=== PATIENT | female | born 1970 | race Caucasian/White ===

== ENCOUNTER 2016-09-27 20:57 | Inpatient (IN) | payer OTHER ==
[~2016-09-27] VITALS: Ht 162.6 cm; Wt 59.0 kg
--- NOTE | 2016-09-28 00:15 | NUR ---
Pre-Admission Note Explained unit protocols regarding medications and vital signs Q4H. Pt verbalizes understanding. [facility]. BP:112/72 HR:84, RR:19, SpO2:98% T:97.9, Ht: 5'4", Wt: 130 lbs. Will continue with admission upon pt arrival on the unit.
[2016-09-28 00:27] LABS: *AMPHETAMINE, URINE POSITIVE (NEGATIVE); *BARBITURATE, URINE NEGATIVE (NEGATIVE); *CANNABINOID, URINE POSITIVE (NEGATIVE); *COCCAINE, URINE NEGATIVE (NEGATIVE); *OPIATE, URINE NEGATIVE (NEGATIVE); *PHENCYCLIDINE SCREEN,URINE NEGATIVE (NEGATIVE)
--- NOTE | 2016-09-28 00:30 | NUR ---
Admission Note Pt is a 45 year old female admitted to [facility] on 09/28/2016 for ETOH dependence, arrived on the unit at 0035. NKA, denies seizure history. Pt was able to provide urine drug screen. Upon admission CIWA 8, BP 112/72, pulse 84, respirations 19, Spo2 98%, temp 97.7, no reports of pain 0/10, weight 130, height 5'4". Pt reports she does not have a primary care provider. Pt reports he is not a smoker. Pt denies being hospitalized within the past 30 days. Substance abuse History is as follows: 1. Vodka 750ml/daily, last intake on 09/27/2016 of 750ml, at this rate since 09/12/2016 (). Pt has been drinking for 3 years. Pt urine drug screen resulted positive for amphetamine and cannabis. Pt stated, "My mixed my drink with meth". Pt reports, "I don't remember using marijuana". Pt reports longest sobriety period was for 10 months in 2016. Pt trigger to drink is d/t her son 3 years ago in a bike accident. This is pts first time in treatment, Pt reports she has detoxed by herself previously at home, but is now ready to detox at [facility]. PMH: Depression. Pt did not bring medications from home,s he reports he does not take medications. Upon assessment, pt presents with restlessness, anxiety, agitation, pt is emotional, is crying, reports chills throughout her body, denies SOB/chest pain, face flushed, skin intact - clammy/sweaty. Pt denies SI/HI. Educational information provided and left at beside, pt oriented to room and encouraged to notify staff with any concerns. Safety measures in place, call light within reach, side rails up x2, bed locked and in low position. Will continue to monitor.
[2016-09-28 00:35] VITALS: BP 112/72
[2016-09-28] MEDS ORDERED: MIRALAX 17 GM POWD.PACK PO PRN (01:15)
[2016-09-28] MEDS ORDERED: MAGNESIUM HYDROXIDE 30 ML LIQUID UDC PO PRN (01:15)
[2016-09-28] MEDS ORDERED: LOPERAMIDE HCL 2 MG CAPSULE PO PRN ×2 (01:15)
[2016-09-28] MEDS ORDERED: LORAZEPAM 1 MG TABLET PO PRN (01:15)
[2016-09-28] MEDS ORDERED: diphenhydrAMINE 50 MG CAPSULE PO PRN (01:15)
[2016-09-28] MEDS ORDERED: THIAMINE HCL 200 MG/2 ML VIAL IM ONE (01:15)
[2016-09-28] MEDS ORDERED: ACETAMINOPHEN 325 MG TABLET PO PRN (01:15)
[2016-09-28] MEDS ORDERED: DICYCLOMINE HCL 20 MG TABLET PO PRN (01:15)
[2016-09-28] MEDS ORDERED: MAG HYDROX/AL HYDROX/SIMETH 30 ML LIQUID UDC PO PRN (01:15)
[2016-09-28] MEDS ORDERED: LORAZEPAM 2 MG/1 ML VIAL IM PRN (01:15)
[2016-09-28] MEDS: ONDANSETRON ODT 4 MG TAB.RAPDIS SL PRN ×2 (01:23→20:19)
[2016-09-28] MEDS: IBUPROFEN 400 MG TABLET PO PRN ×3 (01:23→20:19)
[2016-09-28] MEDS ORDERED: diphenhydrAMINE 50 MG CAPSULE ONE (01:25)
[2016-09-28] MEDS ORDERED: IBUPROFEN 400 MG TABLET ONE (01:25)
[2016-09-28] MEDS ORDERED: ONDANSETRON ODT 4 MG TAB.RAPDIS ONE (01:26)
[2016-09-28] MEDS: LORAZEPAM 1 MG TABLET PO PRN ×2 (01:30→09:06)
--- NOTE | 2016-09-28 01:30 | NUR ---
PRN Administration CIWA 13, pt presents with anxiety, agitation, reports chills, unable to sit still, emotional , tremors visible, skin noted sweat, nausea/vomiting. Ativan 1mg PRN, Motrin 400mg PRN, Zofran ODT 4mg PRN and Benadryl 50mg PRN administered. Safety measures in place, will continue to monitor.
[2016-09-28] MEDS ORDERED: LORAZEPAM 1 MG TABLET ONE (01:36)
[2016-09-28 01:41] LABS: BASOPHILS # (AUTO) 0.1 K/uL (0.0-8.0); BASOPHILS % (AUTO) 0.7 % (0.0-2.0); EOSINOPHILS # (AUTO) 0.1 K/uL (0.0-0.7); EOSINOPHILS % (AUTO) 1.8 % (0.0-7.0); HEMATOCRIT 38.8 % (37-47); HEMOGLOBIN 13.3 G/DL (12.0-16.0); LYMPHOCYTES # (AUTO) 2.7 K/UL (0.8-4.8); LYMPHOCYTES % (AUTO) 33.9 % (20.5-51.5); MEAN CORPUSCULAR HEMOGLOBIN 29.2 UUG (27.0-31.0); MEAN CORPUSCULAR HGB CONC 34 g/dL (32.0-37.0); MEAN CORPUSCULAR VOLUME 85.4 FL (81.0-99.0); MONOCYTES # (AUTO) 0.6 K/UL (0.1-1.30); MONOCYTES % (AUTO) 7.9 % (0.0-11.0); NEUTROPHILS # (AUTO) 4.6 K/UL (1.8-8.9); NEUTROPHILS % (AUTO) 55.7 % (38.5-71.5); PLATELET COUNT (AUTO) 240 K/UL (150-450); RED BLOOD CELL COUNT(AUTO) 4.54 MIL/UL (4.2-5.4); WHITE BLOOD COUNT (AUTO) 8.1 K/UL (4.0-11.2)
[2016-09-28 01:49] LABS: BILIRUBIN,TOTAL 0.3 mg/dL (0.2-1.0); POTASSIUM 3.6 mmol/L (3.5-5.1); TOTAL PROTEIN, SERUM 6.8 g/dL (6.4-8.2)
[2016-09-28 02:00] LABS: THYROID STIMULATING HORMONE 1.432 mIU/mL (0.358-3.740)
--- NOTE | 2016-09-28 02:30 | NUR ---
PRN Reassessment Upon reassessment, pt is in bed, sleeping, no verbal cues of distress, respirations unlabored/even. Safety measures in place. Will continue to monitor.
[2016-09-28 04:00] VITALS: BP 110/78
--- NOTE | 2016-09-28 04:00 | NUR ---
Vital Signs BP 110/78, pulse 82, respirations 16, SpO2 99%, temp 97.9, and no pain 0/10. CIWA deferred d/t pt sleeping, to assess while pt is awake as ordered. Safety measures in place, will continue to monitor.
--- NOTE | 2016-09-28 07:00 | NUR ---
End of Shift Pt is a 45 year old female admitted for ETOH dependence. Pt reported drinking vodka 750ml/daily since 09/12/2016, last intake of 750ml on 09/27/2016. PMH: Depression, NKA, fall/seizure precautions, regular diet and full code. During shift, CIWA 13, pt presents with anxiety, agitation, reports chills, unable to sit still, emotional , tremors visible, skin noted sweat, nausea/vomiting. Ativan 1mg PRN, Motrin 400mg PRN, Zofran ODT 4mg PRN and Benadryl 50mg PRN administered - upon reassessment, pt was sleeping. Pt slept for 4 hours, intake of 500 ml PO and voids x1. Safety measures in place, call light within reach, side rails up x2, bed locked and in low position. Endorsed to day shift nurse.
--- NOTE | 2016-09-28 07:30 | NUR ---
Start of shift note; Received report from night nurse. Patient is a 45 year old female admitted on 09/27/16 for ETOH dependence. Patient reported that she recently relapsed on 09/12/16. Patient reported history of depression. Patient is on fall and seizure precaution. Bed in lowest position, call light within reach. Will continue to monitor patient.
[2016-09-28 08:00] VITALS: BP 101/71
[2016-09-28] MEDS ORDERED: TUBERCULIN,PURIF.PROT.DERIV. 5 TU/0.1 ML TEST ID ONE (09:00)
[2016-09-28] MEDS: FOLIC ACID 1 MG TABLET PO SCH (09:05)
[2016-09-28] MEDS: MULTIVITAMINS,THERAPEUTIC TABLET PO SCH (09:06)
[2016-09-28] MEDS: THIAMINE HCL 100 MG TABLET PO SCH (09:06)
--- NOTE | 2016-09-28 09:08 | NUR ---
PRN medications; Patient is complaining of generalized pain rated 6/10, patient's current is 8. PRN medications given, Motrin 400mg PO, Ativan 1mg PO PRN for CIWA score of 8. Will continue to monitor patient for effectiveness of medication.
--- NOTE | 2016-09-28 10:06 | NUR ---
Re-assessment; Patient's CIWA score decreased to 5 from score of 8. Patient stated pain rate of 3 /10 at this time. PRN medications effective.
[2016-09-28 12:00] VITALS: BP 114/77
[2016-09-28] MEDS: LORAZEPAM 1 MG TABLET PO SCH ×3 (12:12→20:19)
[2016-09-28] MEDS: GABAPENTIN 300 MG CAPSULE PO SCH ×2 (15:00→20:19)
[2016-09-28 16:00] VITALS: BP 110/70
--- NOTE | 2016-09-28 18:43 | NUR ---
End of shift note; Patient is AOX4. Patient is a 45 year old female admitted on 09/27/16 for ETOH dependence. Patient reported that she recently relapsed on 09/12/16. Patient reported history of depression. Patient is on fall and seizure precaution. Bed in lowest position, call light within reach. Patient remained compliant with treatment plan. Medications are effective in reducing withdrawal symptoms. Met all needs.
--- NOTE | 2016-09-28 19:45 | NUR ---
START OF SHIFT Received report from day shift nurse. Pt is lying in bed resting. She is a 45 yo female admitted to [facility] on 09/28 for ETOH dependence. She is A&O x3 and ambulatory. NKA, full code, regular diet. She has a PMH of depression. On admission she reported drinking vodka 750mL per day since 09/12/16. Pt is ordered a 5 day subutex taper. She reports anxiety, sweating, and headache. She is observed to have moderate hand tremors. Taper due tonight. Fall and seizure precautions in place. Bed is down with call light in reach. Addendum: 09/29/16 at 0655 by COLBY MIGUEL RN Correction: Pt is ordered a 5 Day Ativan Taper
[2016-09-28 20:00] VITALS: BP 118/75
[2016-09-28] MEDS: TRAZODONE 50 MG TABLET PO PRN (20:22)
--- NOTE | 2016-09-28 20:23 | NUR ---
PRN Motrin, Zofran, and Trazodone Pt reports nausea without vomiting, headache, and inability to sleep. PRN Motrin, Zofran, and Trazodone administered.
--- NOTE | 2016-09-28 21:23 | NUR ---
PRN Motrin, Zofran, and Trazodone reassessment PRN Motrin, Zofran, and Trazodone effective. Pt is lying comfortably in bed with eyes closed. Respirations even and unlabored. Bed is down with call light in reach.
--- NOTE | 2016-09-28 21:55 | NUR ---
STACI Moran reassessment STACI Moran effective. Pt reports relief of low back pain. Addendum: 09/30/16 at 0337 by COLBY MIGUEL RN Disregard note: Incorrect documentation date.
[2016-09-28 22:41] LABS: *BILIRUBIN,URIN NEGATIVE (NEGATIVE); *BLOOD, URINE Trace-intact (NEGATIVE); *CLARITY,URINE SLIGHTLY CLOUDY (CLEAR); *COLOR,URINE YELLOW (YELLOW); *KETONES,URINE NEGATIVE (NEGATIVE); *PROTEIN,URINE NEGATIVE (NEGATIVE); *UROBILINOGEN,URINE 0.2 E.U./dl (NORMAL); NITRITE, URINE NEGATIVE (NEGATIVE); UGLUCOSE NEGATIVE (NEGATIVE)
[2016-09-28 22:49] LABS: LEUKOCYTE ESTERASE ,URINE TRACE (NEGATIVE)
[2016-09-28 22:54] LABS: BACTERIA,URINE MANY /HPF (NONE SEEN); SQUAMOUS EPITHELIAL CELL,UR FEW /HPF (NONE SEEN)
[2016-09-28] MEDS ORDERED: SULFAMETH/TRIMETH 800/160 MG TABLET ONE (23:37)
[2016-09-28] MEDS: SULFAMETH/TRIMETH 800/160 MG TABLET PO SCH (23:39)
--- NOTE | 2016-09-28 23:40 | NUR ---
Nursing Note Pt c/o "bladder pain", frequency, and burning upon urination. Contacted MD with orders received for urinalysis. MD notified of results with orders for Bactrim received and carried out.
[2016-09-29] VITALS: BP 125/80
[2016-09-29 04:00] VITALS: BP 118/81
--- NOTE | 2016-09-29 07:17 | NUR ---
END OF SHIFT Report provided to day shift nurse. Pt is lying in bed resting. She is a 45 yo female admitted to [facility] on 09/28 for ETOH dependence. She is A&O x4 and ambulatory. NKA, full code, regular diet. She has a PMH of depression. On admission she reported drinking vodka 750mL per day since 09/12/16. Pt is ordered a 5 day Ativan taper. PRN Motrin, Zofran, Trazodone administered. Urinalysis positive for infection. MD aware with orders received for Bactrim. Last CIWA was 4. She drank 1396 mL and slept 10 hours. Fall and seizure precautions in place. Bed is down with call light in reach.
--- NOTE | 2016-09-29 07:30 | NUR ---
START OF SHIFT NOTE: Received report from watch mechanic nurse. Pt is a 45 yo female admitted on 09/28/16 for ETOH dependence. Pt is on a 5 day Ativan taper. Tolerating well. Pt is alert and oriented X4. Color good, skin warm and dry. Respirations even and unlabored. Resting in bed at this time. Safety precautions observed. Call light within reach. Will continue to monitor.
[2016-09-29 08:04] VITALS: BP 130/87
[2016-09-29] MEDS: LORAZEPAM 1 MG TABLET PO SCH ×3 (08:43→20:51)
[2016-09-29] MEDS: SULFAMETH/TRIMETH 800/160 MG TABLET PO SCH ×2 (08:44→20:51)
[2016-09-29] MEDS: THIAMINE HCL 100 MG TABLET PO SCH (08:44)
[2016-09-29] MEDS: IBUPROFEN 400 MG TABLET PO PRN ×2 (08:44→20:52)
[2016-09-29] MEDS: GABAPENTIN 300 MG CAPSULE PO SCH ×3 (08:44→20:51)
[2016-09-29] MEDS: FOLIC ACID 1 MG TABLET PO SCH (08:44)
--- NOTE | 2016-09-29 08:45 | NUR ---
VSS CIWA 11 Pt c/o tremors, anxiety and sweating with chills. Also c/o bladder pain associated with her UTI. Motrin 400mg po prn given
[2016-09-29] MEDS: MULTIVITAMINS,THERAPEUTIC TABLET PO SCH (08:46)
--- NOTE | 2016-09-29 09:45 | NUR ---
Pt states Motrin prn helped her bladder pain
[2016-09-29] MEDS: HYDROXYZINE PAMOATE 25 MG CAPSULE PO PRN (12:14)
--- NOTE | 2016-09-29 12:20 | NUR ---
Pt c/o "bad anxiety" Vistaril 50mg po prn given
[2016-09-29 12:55] VITALS: BP 127/83
--- NOTE | 2016-09-29 13:20 | NUR ---
Pt states Vistaril prn "really didn't help."
[2016-09-29] MEDS ORDERED: PHENAZOPYRIDINE HCL 100 MG TABLET PO SCH (14:00)
[2016-09-29 14:09] LABS: HEPATITIS B SURFACE AG Negative (Negative)
[2016-09-29] MEDS: PHENAZOPYRIDINE HCL 100 MG TABLET PO SCH ×2 (14:09→20:52)
--- NOTE | 2016-09-29 14:30 | NUR ---
VSS CIWA 10 c/o anxiety, tremors, chills and sweating.
--- NOTE | 2016-09-29 16:48 | NUR ---
Therapist informed client of group times. Client did not want to attend because she is not feeling well.
[2016-09-29 17:06] VITALS: BP 125/84
--- NOTE | 2016-09-29 18:50 | NUR ---
END OF SHIFT NOTE: Report given to automatic pinsetter mechanic nurse. Pt is a 45 yo female admitted on 09/28/16 for ETOH dependence. Pt is on a 5 day Ativan taper. Tolerating well. Pt is alert and oriented X4. Color good, skin warm and dry. Respirations even and unlabored. Vital signs have remained stable throughout shift. Pt received Motrin 400mg po prn @ 0845 and Vistaril 50mg po prn @1215. Last CIWA 10 @ 1500. Resting in bed at this time. Safety precautions observed. Call light within reach.
--- NOTE | 2016-09-29 19:55 | NUR ---
START OF SHIFT Received report from day shift nurse. Pt is lying in bed resting. She is a 45 yo female admitted to [facility] on 09/28 for ETOH dependence. She is A&O x3 and ambulatory. NKA, full code, regular diet. She has a PMH of depression. On admission she reported drinking vodka 750mL per day since 09/12/16. Pt is ordered a 5 day Ativan taper. She presents with anxiety, moist skin, and back pain. She is being treated with abx and pyridium for UTI. She verbalizes that the symptoms are improving. Pt expresses the desire to make changes to her life for the better after treatment. Provided support. Fall and seizure precautions in place. Bed is down with call light in reach.
[2016-09-29 20:00] VITALS: BP 129/80
[2016-09-29] MEDS: TRAZODONE 50 MG TABLET PO PRN (20:52)
--- NOTE | 2016-09-29 20:55 | NUR ---
PRN Motrin Pt reports low back pain /. PRN Motrin administered.
--- NOTE | 2016-09-29 21:55 | NUR ---
PRN Motrin reassessment PRN Motrin effective. Pt reports relief of low back pain.
[2016-09-30] VITALS (7 sets, daily range): BP systolic 95–130; BP diastolic 64–80
[2016-09-30] MEDS: HYDROXYZINE PAMOATE 25 MG CAPSULE PO PRN ×2 (03:27→09:57)
[2016-09-30] MEDS: CLONIDINE HCL 0.1 MG TABLET PO PRN ×2 (03:27→09:57)
--- NOTE | 2016-09-30 03:30 | NUR ---
PRN Clonidine and Vistaril Pt woke up and reported anxiety, restlessness, and inability to sleep. She states that she has been waking up off and on throughout the night. Skin is moist and she has hand tremors. B/P 130/80 and CIWA 7. PRN Clonidine and Vistaril administered.
--- NOTE | 2016-09-30 04:30 | NUR ---
PRN Clonidine and Vistaril reassessment PRN Clonidine and Vistaril effective. Pt is lying in bed resting with eyes closed. Respirations even and unlabored. Safety measures in place.
--- NOTE | 2016-09-30 07:28 | NUR ---
END OF SHIFT Report provided to day shift nurse. Pt is lying in bed resting. She is a 45 yo female admitted to [facility] on 09/28 for ETOH dependence. She is A&O x3 and ambulatory. NKA, full code, regular diet. She has a PMH of depression. On admission she reported drinking vodka 750mL per day since 09/12/16. Pt started a 5 day Ativan taper on 09/28. Pt has a UTI and is being treated with abx and pyridium. Per pt symptoms are improving. PRN Motrin, Clonidine, and Vistaril administered. Last CIWA 7 before Clonidine and Vistaril administration and pt fell back to sleep after. She drank 1280mL and slept for 8 hours. Fall and seizure precautions in place. Bed is down with call light in reach.
--- NOTE | 2016-09-30 08:00 | NUR ---
START OF SHIFT Pt 45 y/o female admitted for etoh dependence. Pt received in room with eyes closed resting, but easily arousable to name. Pt alert and oriented to name, place, and time. Perrla. Skin warm and slightly moist to touch. Respirations even and unlabored. Bilateral hand tremors noted slightly. It was reported that pt slept for 8 hours last night. Bed on lowest position with side rails x2 up for safety. Call light within reach. No distress noted at this time.
[2016-09-30] MEDS: SULFAMETH/TRIMETH 800/160 MG TABLET PO SCH ×2 (08:32→20:59)
[2016-09-30] MEDS: PHENAZOPYRIDINE HCL 100 MG TABLET PO SCH ×3 (08:32→20:59)
[2016-09-30] MEDS: MULTIVITAMINS,THERAPEUTIC TABLET PO SCH (08:32)
[2016-09-30] MEDS: FOLIC ACID 1 MG TABLET PO SCH (08:32)
[2016-09-30] MEDS: LORAZEPAM 1 MG TABLET PO SCH ×4 (08:32→20:59)
[2016-09-30] MEDS: GABAPENTIN 300 MG CAPSULE PO SCH ×3 (08:33→20:59)
[2016-09-30] MEDS: THIAMINE HCL 100 MG TABLET PO SCH (08:33)
--- NOTE | 2016-09-30 09:57 | NUR ---
PRN Pt state she feels anxious. Vistaril po prn per MD order given and tolerated well.
--- NOTE | 2016-09-30 09:57 | NUR ---
PRN Pt states still feels anxious. Pressured speech noted. Catapres po prn per MD order given and tolerated well.
--- NOTE | 2016-09-30 10:57 | NUR ---
STACI ULLOA Pt observed in room on bed watching television. No distress noted at this time.
--- NOTE | 2016-09-30 18:21 | NUR ---
END OF SHIFT Pt 45 y/o female admitted for ETOH dependence. Pt alert and oriented to name, place, and time. Perrla. Skin warm and slightly moist to touch. Respirations even and unlabored. Bilateral hand tremors noted slightly. Pt with sad affect. Pt remained to isolative to room throughout the day. Pt denies any SI. Pt did not attend group activity today. pt medication compliant and tolerated well. No ASe noted. Bed on lowest position with side rails x2 up for safety. Call light within reach. No distress noted at this time.
--- NOTE | 2016-09-30 20:00 | NUR ---
START OF SHIFT NOTE PATIENT IN ROM. PATIENT ANXIOUS, EMOTIONAL. UPON GREETING, PATIENT VERBALIZED WANTING TO MAKE A PHONE CALL. DENIES ANY PAIN. NO N/V/D. DENIES SI/HI. PATIENT ADVOCATE NOTIFIED. RECEIVED REPORT FROM DAY SHIFT NURSE. PATIENT IS A 45 YEAR OLD FEMALE, ADMITTED FOR ETOH DEPENDENCE. PATIENT DRINKS 750 ML DAILY OF VODKA SINCE 09/12/16. PATIENT RELAPSED SINCE 09/12/16. PATIENT IS ON 4TH DAY OF HER 5 DAY ATIVAN TAPER. PATIENT IS FULL CODE, REGULAR DIET AND NO KNOWN ALLERGY. PATIENT REPORTS PMH OF DEPRESSION. NO SEIZURE HISTORY. SKIN INTACT.PATIENT IS ON BACTRIM AND PYRIDIUM FOR UTI. PATIENT IN HER ROOM MOST OF THE DAY. VS STABLE. PATIENT WAS GIVEN PRN VISTARIL AND CATAPRES DURING THE DAY. LAST CIWA 4. SAFETY MEASURES IN PLACE. CALL LIGHT IN REACH. WILL CONTINUE TO MONITOR.
[2016-09-30] MEDS: TRAZODONE 50 MG TABLET PO PRN (21:09)
--- NOTE | 2016-09-30 21:09 | NUR ---
PRN DESYREL ADMINISTRATION PATIENT REQUESTS FOR SLEEP AID. PRN DESYREL GIVEN. WILL MONITOR FOR EFFECTIVENESS
[2016-10-01] VITALS: BP 110/75
--- NOTE | 2016-10-01 01:00 | NUR ---
PRN TRAZADONE RE-ASSESSMENT PATIENT IN BED WITH EYES CLOSED. RESPIRATION EVEN AND UNLABORED. SAFETY MEASURES IN PLACE. CALL LIGHT IN REACH. WILL CONTINUE TO MONITOR
[2016-10-01 04:00] VITALS: BP 105/62
--- NOTE | 2016-10-01 07:30 | NUR ---
END OF SHIFT NOTE MONITORED PATIENT THROUGHOUT THE SHIFT. PATIENT NOTED ANXIOUS, EMOTIONAL. DENIES PAIN. NO N/V/D. DENIES SI/HI. DURING SHIFT.PATIENT IS A 45 YEAR OLD FEMALE, ADMITTED FOR ETOH DEPENDENCE. PATIENT DRINKS 750 ML DAILY OF VODKA SINCE 09/12/16. PATIENT RELAPSED SINCE 09/12/16. PATIENT IS ON 4TH DAY OF HER 5 DAY ATIVAN TAPER, TOLERATED WELL. NO ADVERSE REACTION. PATIENT IS FULL CODE, REGULAR DIET AND NO KNOWN ALLERGY. PATIENT REPORTS PMH OF DEPRESSION. NO SEIZURE HISTORY. SKIN INTACT.PATIENT IS ON BACTRIM AND PYRIDIUM FOR UTI, NO ADVERSE REACTION. ENCOURAGE FLUIDS. PATIENT IN HER ROOM MOST OF THE SHIFT. VS STABLE. ENCOURAGE TO PARTICIPATE IN GROUPS. SAFETY MEASURES IN PLACE. CALL LIGHT IN REACH. WILL CONTINUE TO MONITOR. SLEPT 4 HOURS. FLUID INTAKE 296 ML. VOIDED X 2 . NO BM. LAST CIWA 1.
--- NOTE | 2016-10-01 07:35 | NUR ---
Start of Shift Patient Received from overnight cashier nurse. Pt is a 45 y/o female admitted on 09/27/16 for ETOH dependence. Pt is full code regular diet, continues on fall and seizure precautions denies any food or drug allergies. Patient is on 5 Day Ativan taper and is tolerating well. Patient is on Bactrim and Pyridium for UTI. Pts last CIWA 1 which was taken at 0400. Pt received PRN Trazodone for insomnia, medication partially effective per overnight cashier nurse. Pt is currently in room laying down in bed eyes closed resting, with even unlabored breathing at 17. Upon assessment pt c/o some anxiety, presented with restlessness and stated that she did not get enough sleep last night due to nightmares. Pt slept a total of 4 hours last night. All safety measures in place per hospital policy. Bed in lowest position, side rails up x2, call-light within reach. Will continue to monitor and provide support.
[2016-10-01 08:00] VITALS: BP 130/85
[2016-10-01] MEDS: FOLIC ACID 1 MG TABLET PO SCH (09:35)
[2016-10-01] MEDS: LORAZEPAM 1 MG TABLET PO SCH ×3 (09:35→20:58)
[2016-10-01] MEDS: GABAPENTIN 300 MG CAPSULE PO SCH ×3 (09:36→20:58)
[2016-10-01] MEDS: SULFAMETH/TRIMETH 800/160 MG TABLET PO SCH ×2 (09:36→20:58)
[2016-10-01] MEDS: MULTIVITAMINS,THERAPEUTIC TABLET PO SCH (09:36)
[2016-10-01] MEDS: THIAMINE HCL 100 MG TABLET PO SCH (09:36)
[2016-10-01] MEDS: PHENAZOPYRIDINE HCL 100 MG TABLET PO SCH ×3 (09:36→20:58)
[2016-10-01] MEDS ORDERED: QUETIAPINE FUMARATE 25 MG TABLET PO PRN (10:30)
[2016-10-01 12:00] VITALS: BP 119/84
[2016-10-01] MEDS: CLONIDINE HCL 0.1 MG TABLET PO PRN (13:18)
--- NOTE | 2016-10-01 13:18 | NUR ---
PRN MEDICATION Pt c/o Anxiety presented with restlessness sweats and agitation requested something for relief, non-pharmacological techniques interventions provided x3 and were not effective. PRN Clonidine 0.1mg administered PO, educated pt about s/e of medication and when to contact nurse. All needs met, all safety measures in place, will continue to monitor.
--- NOTE | 2016-10-01 13:45 | NUR ---
Therapist encouraged client to continue to attend and participate in daily group psychotherapy. Therapist reminded client that the next group is at 3:30pm, and groups are held daily at 11am and 3:30pm.
--- NOTE | 2016-10-01 14:18 | NUR ---
PRN REASSESSMENT Medication effective pt reported a decrease in anxiety stating "I feel much better now thank you" all needs met will continue to monitor and provide care.
[2016-10-01 16:00] VITALS: BP 106/84
--- NOTE | 2016-10-01 19:05 | NUR ---
End of Shift Report given. Pt is a 45 y/o female admitted on 09/27/16 for ETOH dependence. Pt is full code regular diet, continues on fall and seizure precautions denies any food or drug allergies. Patient is on 5 Day Ativan taper and is tolerating well. Patient is on Bactrim and Pyridium for UTI. Pts last CIWA 5 which was taken at 1600. Pt received PRN Clonidine 0.1mg for anxiety, medication was effective. Pt remains compliant with the treatment plan. Patient encouraged adequate PO fluid intake as tolerated. Detox medication effective at reducing withdrawal symptoms. Patient encouraged to attend group therapies/sessions to learn new coping skills to recent relapse, patient denies SI/HI. Pt ate all of the meals, total fluid intake was 2041mlwith 4 void and 1 bowel movement. Safety measures in place. Call light kept within reach. Patient endorsed to shift supervisor melting nurse, all pertinent information discussed.
[2016-10-01 20:00] VITALS: BP 123/84
--- NOTE | 2016-10-01 20:00 | NUR ---
Start of Shift Pt is a 45 year old female admitted for ETOH dependence, placed on 5 day Ativan taper. Reported drinking 750ml/daily, relapsed on 09/12/2016. PMH: Depression, NKA, regular diet, fall/seizure precautions - denies hx of seizures and full code. Upon assessment, pt reports feeling anxious, skin noted to be with moderate sweat, face flushed, respirations even/unlabored, denies SOB/chest pain, denies n/v/d, bowel sounds active x4, abdomen soft. Safety measures in place, call light within reach, side rails up x2, bed locked and in low position. Will continue to monitor.
--- NOTE | 2016-10-01 22:40 | NUR ---
PRN Administration Pt requested aid to help her sleep. Seroquel 50mg PRN administered. Safety measures in place. Will continue to monitor.
--- NOTE | 2016-10-01 23:40 | NUR ---
PRN Reassessment Upon reassessment, pt is sleeping, eyes closed, respirations even/unlabored, no s/s of acute distress noted. Seroquel effective. Safety measures in place. Will continue to monitor.
[2016-10-02] VITALS: BP 109/75
--- NOTE | 2016-10-02 | NUR ---
Vital Signs BP 109/75, Pulse 81, respirations 18, SpO2 96%, temp 97.9, pain 0/10 CIWA deferred d/t pt sleeping - to assess while pt is awake as ordered. Safety measures in place. Will continue to monitor.
[2016-10-02] MEDS: HYDROXYZINE PAMOATE 25 MG CAPSULE PO PRN ×2 (01:25→13:24)
--- NOTE | 2016-10-02 01:25 | NUR ---
PRN Administration Upon awakening from sleeping, pt reports feeling anxious. Non-pharmacological methods ineffective. Vistaril 50mg PRN administered. Safety measures in place. Will continue to monitor.
--- NOTE | 2016-10-02 02:25 | NUR ---
PRN Reassessment Upon reassessment, pt is noted to be resting, eyes closed, respirations even/unlabored. Safety measures in place. Will continue to monitor.
[2016-10-02 04:00] VITALS: BP 114/75
[2016-10-02] MEDS: CLONIDINE HCL 0.1 MG TABLET PO PRN ×2 (04:18→13:25)
--- NOTE | 2016-10-02 04:18 | NUR ---
PRN Reassessment Pt reports feeling sweaty, chills throughout body and restless. BP 114/75, pulse 64, respirations 18, SpO2 98%, temp 98.1 Clonidine 0.1mg PRN administered. Safety measures in place. Will continue to monitor. Addendum: 10/02/16 at 0436 by JUDY DUKE RN PRN Administration
--- NOTE | 2016-10-02 05:18 | NUR ---
PRN Reassessment Upon reassessment, pt is resting, eyes closed, respirations even/unlabored. safety measures in place. will continue to monitor.
--- NOTE | 2016-10-02 07:00 | NUR ---
End of Shift Pt is a 45 year old female admitted for ETOH dependence, placed on 5 day Ativan taper. Reported drinking 750ml/daily, relapsed on 09/12/2016. PMH: Depression, NKA, regular diet, fall/seizure precautions - denies hx of seizures and full code. During shift, pt presented with feeling anxious, skin noted to be with moderate sweat, face flushed - scheduled taper medications administered, CIWA 5. Seroquel 50mg PRN administered for sleep - effective. Vistaril 50mg PRN and Clonidine 0.1mg PRN administered for anxiety, chills and restlessness. Pt slept for 6 hours, intake of 1547 ml PO and voids x2. Safety measures in place, call light within reach, side rails up x2, bed locked and in low position. Endorsed to day shift nurse.
--- NOTE | 2016-10-02 07:01 | NUR ---
Start of Shift Notes: Received patient in his/her room. Alert and oriented x 4. Able to make needs known. Respirations even and unlabored. No SOB noted. Skin warm and dry to touch. Abdomen soft and non-distended. BS (+) in all 4 quadrants. No complains of N/V/D or constipation noted. Voids independently. Ambulatory ad steven with steady gait. Patient is a 45 year old female admitted for ETOH dependence who was placed on a 5-day Ativan taper as ordered. No adverse reactions noted. Has past medical hx of depression. No PRNs were given during the night. Slept for 6 hours. NKA. FULL CODE. Regular diet. On fall and seizure precautions. Educated patient on the current plan of care and the current medication regimen. Will encourage oral fluid intake and encouraged group participation to learn new skills to prevent relapse.
[2016-10-02 08:00] VITALS: BP 90/57
[2016-10-02] MEDS: FOLIC ACID 1 MG TABLET PO SCH (08:25)
[2016-10-02] MEDS: SULFAMETH/TRIMETH 800/160 MG TABLET PO SCH ×2 (08:25→20:55)
[2016-10-02] MEDS: THIAMINE HCL 100 MG TABLET PO SCH (08:25)
[2016-10-02] MEDS: MULTIVITAMINS,THERAPEUTIC TABLET PO SCH (08:25)
[2016-10-02] MEDS: GABAPENTIN 300 MG CAPSULE PO SCH ×3 (08:25→20:55)
[2016-10-02] MEDS: LORAZEPAM 1 MG TABLET PO SCH ×2 (08:26→20:55)
[2016-10-02] MEDS: PHENAZOPYRIDINE HCL 100 MG TABLET PO SCH (08:26)
[2016-10-02 12:00] VITALS: BP 104/72
--- NOTE | 2016-10-02 13:25 | NUR ---
Clonidine 0.1mg PO and [id number] 50 mg PO given: Patient noted to be teary, anxious and with tremors. BP 104/72, Pulse 92. Non-pharmacological interventions were provided but did not help. Medicated patient with Clonidine 0.1mg PO and Vistaril 50 mg PO as ordered. Will monitor for effectiveness
--- NOTE | 2016-10-02 14:25 | NUR ---
Re-assessment: Per patient, PRN Vistaril and Clonidine were effective in reducing anxiety, tremors and agitation.
[2016-10-02 16:00] VITALS: BP 116/81
--- NOTE | 2016-10-02 18:49 | NUR ---
End of Shift Notes: Patient is a 45 year old female admitted for ETOH dependence who was placed on a 5-day Ativan taper as ordered. No adverse reactions noted. NKA. FULL CODE. Regular diet. Prior to admission, patient was using 750cc of Vodka daily. VS monitored closely. No significant abnormalities noted. Withdrawal symptoms closely monitored. Initial CIWA 5, patient presented with anxiety and agitation. Last CIWA 3. Medicated patient with Clonidine and Vistaril at 1325 with help after 1 hour. Per patient, Ativan has been helping her with her withdrawal symptoms. Seen by Dr. Irizarry today and increased patients sleep aid. Encouraged to attend group and activities. All needs met and attended. Will continue to monitor closely.
[2016-10-02 20:00] VITALS: BP 107/62
--- NOTE | 2016-10-02 20:00 | NUR ---
Start of Shift Pt is a 45 year old female admitted for ETOH dependence, placed on 5 day Ativan taper. Reported drinking 750ml/daily, relapsed on 09/12/2016. PMH: Depression, NKA, regular diet, fall/seizure precautions - denies hx of seizures and full code. Upon assessment, pt reports feeling anxious, face flushed, skin clammy, respirations even/unlabored, denies SOB/chest pain, denies n/v/d, bowel sounds active x4, abdomen soft. Safety measures in place, call light within reach, side rails up x2, bed locked and in low position. Will continue to monitor.
[2016-10-02] MEDS: QUETIAPINE FUMARATE 25 MG TABLET PO PRN (23:48)
--- NOTE | 2016-10-02 23:48 | NUR ---
PRN Administration Pt requested aid to help her sleep. Seroquel 100mg PRN administered for sleep as ordered. Safety measures in place. Will continue to monitor.
[2016-10-03] VITALS: BP 109/73
--- NOTE | 2016-10-03 00:48 | NUR ---
PRN Reassessment Upon reassessment, pt is noted to be sleeping, eyes closed, respirations even/unlabored. Safety measures in place. Will continue to monitor.
[2016-10-03] MEDS: HYDROXYZINE PAMOATE 25 MG CAPSULE PO PRN ×3 (03:17→17:34)
--- NOTE | 2016-10-03 03:17 | NUR ---
PRN Administration Upon awakening, pt reported feeling anxious - nonpharmacological methods ineffective. Vistaril 50mg PRN administered. Safety measures in place. Will continue to monitor.
[2016-10-03 04:00] VITALS: BP 93/58
--- NOTE | 2016-10-03 07:00 | NUR ---
End of Shift Pt is a 45 year old female admitted for ETOH dependence, placed on 5 day Ativan taper. Reported drinking 750ml/daily, relapsed on 09/12/2016. PMH: Depression, NKA, regular diet, fall/seizure precautions - denies hx of seizures and full code. During shif, pt presented with anxiety with emotional volatility, face/skin flushed and clammy - scheduled taper medications administered, effective in management of s/s of withdrawal, CIWA 3. Pt education on relaxation techniques and coping mechanism - pt verbalized understanding. Seroquel 100mg PRN administered for sleep and Vistaril 50mg PRN administered. Pt slept for 9 hours, intake of 1387 ml PO and voids x2. Safety measures in place, call light within reach, side rails up x2, bed locked and in low position. Endorsed to day shift nurse.
--- NOTE | 2016-10-03 07:40 | NUR ---
START OF SHIFT Rcvd endorsement from ongoing nurse, client is in bed, she sound asleep, easy to arouse, R 14bpm even, non-labored. Client admired to [facility] on 09/27/16 for alcohol withdrawal, she completed 5 day Ativan taper, with no ASE. she is scheduled for D/C tomorrow to [facility]. Seroquel 100mg PRN administered for inability to sleep and Vistaril 50mg for anxiety, noted effective, she slept 9 hrs. Last CIWA 2. NKA, regular diet, full code. She is on fall/seizure precautions - denies hx of withdrawal-induced seizures. She is on antibiotic therapy Bactrim BID po for UTI, in progress, client denies pain on urination. Call light within reach. Bed in lowest/locked position. Side rails x 2 up/padded. Will continue to monitor.
[2016-10-03] MEDS: THIAMINE HCL 100 MG TABLET PO SCH (09:31)
[2016-10-03] MEDS: GABAPENTIN 300 MG CAPSULE PO SCH ×3 (09:31→21:08)
[2016-10-03] MEDS: FOLIC ACID 1 MG TABLET PO SCH (09:31)
[2016-10-03] MEDS: MULTIVITAMINS,THERAPEUTIC TABLET PO SCH (09:31)
[2016-10-03] MEDS: VENLAFAXINE XR 75 MG CAP.SR.24H PO SCH (09:31)
[2016-10-03] MEDS: SULFAMETH/TRIMETH 800/160 MG TABLET PO SCH ×2 (09:31→21:08)
[2016-10-03] MEDS: CLONIDINE HCL 0.1 MG TABLET PO PRN ×2 (09:41→17:34)
--- NOTE | 2016-10-03 09:41 | NUR ---
PRN Vistaril, Clonidine Client reports anxiety and irritability, Vistaril 50mg and Clonidine 0.1mg PO administered, risk/benefits discuss, she verbalized understanding. Call light within reach.
--- NOTE | 2016-10-03 10:41 | NUR ---
Reassessment PRN Vistaril, Clonidine Client reports feeling less anxious, client demonstrated relaxation breathing techniques. Vistaril 50mg and Clonidine 0.1mg effective. Call light within reach.
[2016-10-03 12:00] VITALS: BP 101/66
[2016-10-03 16:55] VITALS: BP 113/77
--- NOTE | 2016-10-03 17:34 | NUR ---
PRN Vistaril, Clonidine Client reports anxiety and irritability, Vistaril 50mg and Clonidine 0.1mg PO administered, risk/benefits discuss, she verbalized understanding. Call light within reach.
--- NOTE | 2016-10-03 19:15 | NUR ---
Start of Shift Patient Received. Patient is in activities room participating in group meeting. Per endorsement, patient is a 45 year old female, admitted on 09/27/16 under the care of Dr. De León. Patient received a 5 day Ativan taper that has completed. No known allergies, following a regular diet, wishes to be full code, skin intact, placed on fall and seizure precautions. Patient is currently receiving Bactrim DS for UTI. Patient is set for discharge tomorrow 10/04/16 to [facility]. Patient was given PRN Clonidine and Vistaril x2 during shift. All needs attended to promptly. Will continue to monitor.
--- NOTE | 2016-10-03 19:17 | NUR ---
END OF SHIFT Endorsed care to incoming nurse, client is in group therapy for skills to maintain sober, she completed 5 day Ativan taper with no ASE. she is schedule for discharge tomorrow to [facility]. PRN Vistaril and Clonidine x 2 for anxiety and irritability, noted effective. Last CIWA 2 @ 1700. Adequate intake [id number] and output void x 4. Client denies a history of withdrawal-induced seizure. NKDA, full code, regular diet. She is placed on fall/seizure precautions. Bed in lowest/locked position. Side rails x 2 up. Call light within reach.
[2016-10-03 21:01] VITALS: BP 106/66
[2016-10-03] MEDS: QUETIAPINE FUMARATE 25 MG TABLET PO PRN (21:07)
--- NOTE | 2016-10-03 21:07 | NUR ---
PRN Medication Administration Patient is verbalizing inability of falling asleep. All non pharmacological interventions not effective. PRN Seroquel administered with routine medications. Will continue to monitor for effectiveness of medication.
[2016-10-03] MEDS ORDERED: VENL75CA56 PO (21:22)
[2016-10-03] MEDS ORDERED: HYDR-3895 PO (21:22)
[2016-10-03] MEDS ORDERED: CLON0.1T14 PO (21:22)
[2016-10-03] MEDS ORDERED: GABA-534 PO (21:22)
[2016-10-03] MEDS ORDERED: QUET25TA PO (21:22)
--- NOTE | 2016-10-03 22:00 | NUR ---
PRN Medication Reassessment Patient was given PRN Clonidine, Vistaril, Robaxin, and Motrin. All medications noted to be effective as evidence by patient in bed sleeping. No Facial grimacing noted or restlessness noted. All needs attended to promptly. Will continue to monitor.
[2016-10-03 22:13] LABS: *AMPHETAMINE, URINE NEGATIVE (NEGATIVE); *BARBITURATE, URINE NEGATIVE (NEGATIVE); *CANNABINOID, URINE NEGATIVE (NEGATIVE); *COCCAINE, URINE NEGATIVE (NEGATIVE); *OPIATE, URINE NEGATIVE (NEGATIVE); *PHENCYCLIDINE SCREEN,URINE NEGATIVE (NEGATIVE)
[2016-10-04 00:15] VITALS: BP 110/61
[2016-10-04 04:00] VITALS: BP 105/61
--- NOTE | 2016-10-04 07:11 | NUR ---
End of Shift Patient is in bed sleeping. Breathing even and non labored. No signs of pain or discomfort noted. Patient is a 45 year old female, admitted on 09/27/16 under the care of Dr. De León. Patient received a 5 day Ativan taper that has completed. No known allergies, following a regular diet, wishes to be full code, skin intact, placed on fall and seizure precautions. Patient continues receiving Bactrim DS for UTI. Patient is set for discharge today to [facility]. Patient was given PRN Seroquel for sleep and medication noted to be effective. Patient noted to sleep 7 hours. All needs attended to promptly. Will continue to monitor.
--- NOTE | 2016-10-04 07:15 | NUR ---
Start of Shift note: received pt from shift leader nurse, pt is in stable condition at this time no s/s of pain or discomfort. pt is admitted to [facility] for ETOH withdrawal/dependence. pt slept 7 hrs and last ciwa 0. pt is set to discharge will assist pt in discharging and will continue to monitor pt for any changes.
[2016-10-04] MEDS: MULTIVITAMINS,THERAPEUTIC TABLET PO SCH (08:05)
[2016-10-04] MEDS: FOLIC ACID 1 MG TABLET PO SCH (08:05)
[2016-10-04] MEDS: GABAPENTIN 300 MG CAPSULE PO SCH (08:05)
[2016-10-04] MEDS: VENLAFAXINE XR 75 MG CAP.SR.24H PO SCH (08:05)
[2016-10-04] MEDS: THIAMINE HCL 100 MG TABLET PO SCH (08:05)
[2016-10-04 08:13] VITALS: BP 103/60
--- NOTE | 2016-10-04 09:22 | NUR ---
discharge note: pt left the unit in stable condition no s/s of pain or discomfort or any withdrawal symptoms. pt teaching administered and pt verbalized understanding. All personal belongings were returned .V/S WNL. PT will be transferred to able to change via private car
== END 2016-10-04 09:22 | disposition other institution (70) | DRG 895 ==
LOC: SRC 09-28
PROVIDERS: ADMIT Internal Medicine; ATTEND Internal Medicine
PROC: HZ2ZZZZ Detoxification Services for Substance Abuse Treatment (ICD-10-PCS; principal; 2016-09-28)
PROC: HZ31ZZZ Individual Counseling for Substance Abuse Treatment, Behavioral (ICD-10-PCS; 2016-09-29)
PROC: HZ41ZZZ Group Counseling for Substance Abuse Treatment, Behavioral (ICD-10-PCS; 2016-10-01)
DX: F10.230 Alcohol dependence with withdrawal, uncomplicated (principal); N39.0 Urinary tract infection, site not specified; Y90.7 Blood alcohol level of 200-239 mg/100 ml; G47.00 Insomnia, unspecified; F41.9 Anxiety disorder, unspecified; F15.10 Other stimulant abuse, uncomplicated; F32.9 Major depressive disorder, single episode, unspecified; B96.1 Klebsiella pneumoniae [K. pneumoniae] as the cause of diseases classified elsewhere; Z16.11 Resistance to penicillins
CPT/HCPCS: 36415; 70030-TC; 80307; 80324; 80349; 83690; 83735; 84443; 84703; 85025; 86580; 86705; 87077; 87086; 87340; 87806; A4663; G0480; Q0162; Q0163